=== PATIENT | female | born 1960 | race Caucasian/White ===

== ENCOUNTER 2022-03-03 13:15 | Outpatient (CLI) | payer BC ==
[~2022-03-03] VITALS: Ht 165.1 cm; Wt 107.8 kg
[~2022-03-03 13:15] MED LIST: ACTOS 15MG TAB15 MG PO; ACTOS30 MG PO; AMBIEN 10MG10 MG PO; ASPIR-LOW81 MG PO; ASPIRIN 81M81 MG/TA2 PO; ASPIRIN E.C. 8181 MG PO; B-121000 MCG PO; BELLADONNA/OPIU1 SU2 RC; BENZAPRIL; BYETTA SC; BYSTOLIC PO; BYSTOLIC10 MG PO; BYSTOLIC20 MG PO; CHANTIX 1MG1 MG PO; CRUTCHES MC; DIABETA 5MG5 MG/TAB PO; FARXIGA10 PO; FLEXERIL 1010 MG/TAB PO; FLEXERIL10 MG PO; GLUCOPHAGE PO; GLUCOPHAGE XR500 M1 PO; GLUCOPHAGE500 MG/TAB PO; GLUMETZA500 MG PO; HCTZ12.5TAB PO; JANUVIA 100MG100 MG PO; LIPITOR 40MG TA40 MG PO; LIPITOR40 MG PO; LORTAB 5/500 501 TAB PO; LOTENSIN10 MG PO; LOTENSIN40 MG PO; LOVAZA1 GM PO; LYRICA 50MG CAP50 MG PO; MOUNJARO12.5 MG/0. SQ; NAPROSYN500 MG PO; NITROQUICK0.4 MG SL; NITROSTAT0.4 MG/TAB SL; NO HOME MEDICATIONS; NORCO 325 MG-51 TAB PO; NORVASC 10MG10 MG PO; NORVASC 5MG5 MG/TAB PO; NOVOLOG FLEX100 U/ML SQ; ONE DAILY1 TA1 PO; PERCOCET 325 MG1 TA2 PO; PHENERGAN 25 TA25 MG PO; PLAVIX 75MG TAB75 MG PO; PROAIR HFA0.09 MG/AC IH; PROTONIX 40MG T40 MG PO; SEPTRA DS 8001 TAB PO; SYNTHROID 0.10.15 MG PO; TENORMIN 5050 MG/TAB PO; TENORMIN100 MG PO; TRESIBA FL200 UNIT/1 SQ; TUSS PO; VICODIN 5/5001 UDTAB PO; VITAMIN B-625 MG PO; VITAMIN C1 TAB PO; XIGDUO5/1000 PO; ZITHROMAX 250M250 MG PO; ZITHROMAX250 MG PO; [UNRECOGNIZED DRUG - OTHER]
[2022-03-03 14:34] VITALS: BP 109/70; PULSE 79; TEMP 97.5
== END 2022-03-03 15:44 ==
LOC: EUO 13:15
DX: N17.9 Acute kidney failure, unspecified (principal)
CPT/HCPCS: J7030

== ENCOUNTER → 2023-06-08 | Outpatient (CLI) | payer BC ==
[~2023-06-08] MED LIST changes: +Iodixanol-320 100 ML BOTTLE IV ONE; +NS 100 ML IV SCH
== END ==
LOC: COL.RAD 14:15
DX: R31.0 Gross hematuria (principal)
CPT/HCPCS: Q9967

== ENCOUNTER 2023-08-22 09:49 | Emergency (ER) | payer BC ==
[~2023-08-22] VITALS: Ht 165.1 cm; Wt 100.0 kg
[~2023-08-22 09:49] MED LIST changes: -Iodixanol-320 100 ML BOTTLE IV ONE; -NS 100 ML IV SCH
[2023-08-22 09:51] VITALS: TEMP 97.9
[2023-08-22 10:46] LABS: BASO # 0.1 K/mm3 (0.0-0.2); BASO % 0.5 % (0.0-2.0); EOS # 0.2 K/mm3 (0.0-0.7); EOS % 1.3 % (0.0-4.0); GRAN # 10.6 K/mm3 (1.4-6.5); GRAN % 80.5 % (42.2-75.2); HEMOGLOBIN 13.4 g/dl (12.5-16.0); LYMPH # 1.5 K/mm3 (1.2-3.4); LYMPH % 11.4 % (20.0-51.0); MEAN CELL VOLUME 79 fl (80.0-100.0); MEAN CORPUSCULAR HEMOGLOBIN 25 pg (27-31); MEAN CORPUSCULAR HGB CONC 31 g/dl (33.0-37.0); MEAN PLATELET VOLUME 10.4 fl (7.4-10.4); MONO # 0.8 K/mm3 (0.1-0.6); MONO % 5.9 % (1.7-9.3); PLATELET COUNT 482 K/mm3 (130-400); RED BLOOD COUNT 5.47 M/mm3 (4.10-5.30); REDCELL DISTRIBUTION WIDTH-CV 16.2 % (11.5-14.5)
[2023-08-22 11:20] LABS: ALANINE AMINOTRANSFERASE 17 U/L (0-55); ALBUMIN 4.1 g/dL (3.4-4.8); ALKALINE PHOSPHATASE 109 U/L (40-150); AST,SGOT 19 U/L (5-34); BILIRUBIN,TOTAL 0.7 mg/dL (0.2-1.2); BLOOD UREA NITROGEN 21 mg/dL (10-20); CALCIUM 9.8 mg/dL (8.4-10.2); CHLORIDE 102 mEq/L (98-107); CREATININE, serum 1.08 mg/dL (0.57-1.11); GLUCOSE 119 mg/dL (70-99); POTASSIUM 3.9 mEq/L (3.5-4.5); SODIUM 137 mEq/L (136-145); TOTAL PROTEIN 7.8 g/dl (6.2-8.1)
[2023-08-22 11:27] LABS: TROPONIN-I < 0.010 ng/mL (0.00-0.033)
[2023-08-22 11:31] LABS: ANION GAP 13 mmol/L (7-16)
[2023-08-22 11:41] LABS: COLLECTION METHOD CLEAN CATCH
[2023-08-22 12:12] LABS: URINE APPEARANCE CLOUDY (CLEAR/HAZY); URINE BLOOD NEGATIVE (NEGATIVE); URINE COLOR Dark Yellow (YELLOW); URINE GLUCOSE NEGATIVE (NEGATIVE); URINE KETONE 1+ (NEGATIVE); URINE NITRATE NEGATIVE (NEGATIVE); URINE PROTEIN(semi-quant) 2+ (NEGATIVE)
[2023-08-22 12:42] LABS: URINE BACTERIA OCCASIONAL /hpf (NONE SEEN)
[2023-08-22] MEDS ORDERED: CEPHALEXIN500 M1 PO (12:55)
[2023-08-22] MEDS ORDERED: NS 500 ML IV ONE (13:00)
[2023-08-22] MEDS ORDERED: cefTRIAXone 1 G in Water For Injection,Sterile 10 ML IV ONE (13:00)
[2023-08-22 13:48] VITALS: BP 115/77; PULSE 84
== END 2023-08-22 13:49 | disposition home or self-care (01) ==
LOC: COL.ER 09:49
PROVIDERS: Nurse Practitioner
DX: R42 Dizziness and giddiness (principal); N39.0 Urinary tract infection, site not specified; E11.9 Type 2 diabetes mellitus without complications; Z79.84 Long term (current) use of oral hypoglycemic drugs
CPT/HCPCS: J0696; J7040